=== PATIENT | male | born 1980 | race Two or more races ===

== ENCOUNTER 2021-10-10 16:25 | Emergency (ER) | payer MEDICARE, MEDICAID ==
[~2021-10-10] VITALS: Ht 172.7 cm; Wt 89.8 kg
[2021-10-10 16:44] VITALS: BP 115/78
[2021-10-10] MEDS ORDERED: HYDROcodone-ACET 5/325MG TAB PO ONE (17:30)
[2021-10-10] MEDS ORDERED: HYDR1TAB97 PO (17:59)
== END 2021-10-10 18:10 | disposition home or self-care (01) ==
LOC: ER 16:25
DX: S92.351A Displaced fracture of fifth metatarsal bone, right foot, initial encounter for closed fracture (principal); S92.341A Displaced fracture of fourth metatarsal bone, right foot, initial encounter for closed fracture; S93.401A Sprain of unspecified ligament of right ankle, initial encounter; N18.9 Chronic kidney disease, unspecified; Z79.899 Other long term (current) drug therapy; Z88.0 Allergy status to penicillin; Z88.1 Allergy status to other antibiotic agents; Z88.8 Allergy status to other drugs, medicaments and biological substances; X50.1XXA Overexertion from prolonged static or awkward postures, initial encounter; Y93.89 Activity, other specified; Y92.89 Other specified places as the place of occurrence of the external cause; Y99.8 Other external cause status
CPT/HCPCS: 29515; 73610; 73630

== ENCOUNTER 2022-08-17 16:13 | Emergency (ER) | payer MEDICARE, MEDICAID ==
[~2022-08-17] VITALS: Ht 170.2 cm; Wt 98.4 kg
[~2022-08-17 16:13] MED LIST: HYDR1TAB97 PO
[2022-08-17] MEDS ORDERED: TETANUS-DIPTH-ACEL PERTUSSIS 0.5ML SYR Tdap IM ONE (17:30)
[2022-08-17] MEDS ORDERED: CLINDAMYCIN 600 MG/4 ML VL IM ONE (17:30)
[2022-08-17 17:33] VITALS: BP 147/91
[2022-08-17] MEDS ORDERED: CLIN300C8 PO (17:38)
[2022-08-17] MEDS ORDERED: COR10OTS OT (17:39)
[2022-08-17] MEDS ORDERED: CLINDAMYCIN HCL 150 MG CAP PO ONE (17:45)
== END 2022-08-17 17:54 | disposition home or self-care (01) ==
LOC: ER 16:13
DX: S01.312A Laceration without foreign body of left ear, initial encounter (principal); H70.92 Unspecified mastoiditis, left ear; I10 Essential (primary) hypertension; Z88.0 Allergy status to penicillin; Z88.1 Allergy status to other antibiotic agents; W18.39XA Other fall on same level, initial encounter; Y93.01 Activity, walking, marching and hiking; Y92.89 Other specified places as the place of occurrence of the external cause; Y99.8 Other external cause status
CPT/HCPCS: 12013; 70450; 90471; 90715